=== PATIENT | male | born 1945 | race Native Hawaiian/Other Pacific Islander ===

== ENCOUNTER 2017-01-25 05:25 | Emergency (ER) | payer OTHER ==
[~2017-01-25] VITALS: Ht 180.3 cm; Wt 98.9 kg
[~2017-01-25 05:25] MED LIST: ALLO100T22 PO; CLONIDINE0.1 MG PO; INDOMETHACIN ER75 MG PO; LISITAB PO; TRAM50TA PO
[2017-01-25 05:42] VITALS: TEMP 98.8
[2017-01-25 06:35] LABS: PLATELET COUNT 174 K/uL (142-355)
[2017-01-25 06:39] LABS: POTASSIUM 3.6 mmol/L (3.6-5.2)
[2017-01-25 09:50] VITALS: BP 156/86
== END 2017-01-25 09:58 | disposition home or self-care (01) ==
LOC: ED 05:25
PROVIDERS: Emergency Medicine
DX: R10.31 Right lower quadrant pain (principal); N20.1 Calculus of ureter; N23 Unspecified renal colic
CPT/HCPCS: 36415; 80053; 81000; 83690; 85027; 96374; 96375; 99284; J2270; J2405

== ENCOUNTER 2018-06-25 07:33 | Outpatient (CLI) | payer OTHER ==
[~2018-06-25] VITALS: Ht 177.8 cm; Wt 97.1 kg
== END 2018-06-25 21:40 | disposition home or self-care (01) ==
LOC: NM 07:33
DX: R53.83 Other fatigue (principal); R94.31 Abnormal electrocardiogram [ECG] [EKG]
CPT/HCPCS: 93306; A9500; J2785

== ENCOUNTER 2018-07-20 09:30 | Outpatient (CLI) | payer OTHER ==
[2018-07-20 10:53] LABS: PLATELET COUNT 151 K/uL (142-355)
[2018-07-20 11:35] LABS: POTASSIUM 3.6 mmol/L (3.6-5.2)
== END 2018-07-20 22:18 | disposition home or self-care (01) ==
LOC: LABW 09:30
PROVIDERS: Specialist
DX: R07.2 Precordial pain (principal); Z01.810 Encounter for preprocedural cardiovascular examination
CPT/HCPCS: 36415; 80053; 85027

== ENCOUNTER 2018-11-10 07:42 | Outpatient (CLI) | payer OTHER ==
[2018-11-10 09:21] LABS: POTASSIUM 3.9 mmol/L (3.6-5.2)
== END 2018-11-10 19:28 | disposition home or self-care (01) ==
LOC: LABW 07:42
PROVIDERS: Nurse Practitioner Adult Health
DX: I25.10 Atherosclerotic heart disease of native coronary artery without angina pectoris (principal); E78.2 Mixed hyperlipidemia; Z79.899 Other long term (current) drug therapy
CPT/HCPCS: 36415; 80048; 80061; 80076; 84436; 84443; 84479

== ENCOUNTER 2018-12-10 07:21 | Outpatient (CLI) | payer OTHER ==
[2018-12-10 09:09] LABS: POTASSIUM 3.7 mmol/L (3.6-5.2)
== END 2018-12-10 23:42 | disposition home or self-care (01) ==
LOC: LABW 07:21
PROVIDERS: Nurse Practitioner Adult Health
DX: Z79.899 Other long term (current) drug therapy (principal)
CPT/HCPCS: 36415; 80048

== ENCOUNTER 2019-02-08 06:45 | Outpatient (CLI) | payer OTHER ==
[2019-02-08 08:38] LABS: POTASSIUM 4.5 mmol/L (3.6-5.2)
== END 2019-02-08 23:17 | disposition home or self-care (01) ==
LOC: LABW 06:45
PROVIDERS: Nurse Practitioner Adult Health
DX: E78.2 Mixed hyperlipidemia (principal); Z79.899 Other long term (current) drug therapy
CPT/HCPCS: 36415; 80048; 80061; 80076; 84436; 84443; 84479

== ENCOUNTER 2019-03-01 06:59 | Outpatient (CLI) | payer OTHER ==
[2019-03-01 07:27] LABS: PLATELET COUNT 134 K/uL (142-355)
[2019-03-01 07:42] LABS: POTASSIUM 3.9 mmol/L (3.6-5.2)
== END 2019-03-01 23:59 | disposition home or self-care (01) ==
LOC: LABW 06:59
PROVIDERS: Specialist
DX: Z79.899 Other long term (current) drug therapy (principal)
CPT/HCPCS: 36415; 80048; 85027

== ENCOUNTER 2019-03-11 11:30 | Emergency (ER) | payer OTHER ==
[~2019-03-11] VITALS: Ht 177.8 cm; Wt 98.9 kg
[2019-03-11 11:30] VITALS: TEMP 97.9
[2019-03-11 12:20] VITALS: BP 152/84
== END 2019-03-11 12:20 | disposition home or self-care (01) ==
LOC: ED 11:30
DX: B02.9 Zoster without complications (principal)
CPT/HCPCS: 99281

== ENCOUNTER → 2019-06-30 | Outpatient (CLI) | payer OTHER ==
[2019-06-30 08:59] LABS: POTASSIUM 4.1 mmol/L (3.6-5.2)
== END ==
LOC: LAB 07:39
PROVIDERS: Internal Medicine Interventional Cardiology
DX: I25.10 Atherosclerotic heart disease of native coronary artery without angina pectoris (principal); E78.2 Mixed hyperlipidemia; Z79.899 Other long term (current) drug therapy
CPT/HCPCS: 36415; 80048; 80061; 80076; 84436; 84443; 84479

== ENCOUNTER 2019-12-26 15:26 | Emergency (ER) | payer OTHER ==
[~2019-12-26] VITALS: Ht 177.8 cm; Wt 98.9 kg
[2019-12-26 15:34] VITALS: TEMP 99.2
[2019-12-26 16:19] LABS: PLATELET COUNT 187 K/uL (142-355)
[2019-12-26 16:21] LABS: POTASSIUM 4.1 mmol/L (3.6-5.2)
[2019-12-26 16:56] VITALS: BP 170/75
== END 2019-12-26 16:56 | disposition home or self-care (01) ==
LOC: ED 15:26
PROVIDERS: Hospitalist
DX: M10.9 Gout, unspecified (principal)
CPT/HCPCS: 80048; 84550; 85027; 85610; 85730; 93005; 99283; J1885; J2930

== ENCOUNTER 2019-12-28 07:30 | Outpatient (CLI) | payer OTHER ==
[2019-12-28 08:07] LABS: POTASSIUM 4.6 mmol/L (3.6-5.2)
== END 2019-12-28 21:24 | disposition home or self-care (01) ==
LOC: LABW 07:30
PROVIDERS: Nurse Practitioner
DX: I25.10 Atherosclerotic heart disease of native coronary artery without angina pectoris (principal); E78.2 Mixed hyperlipidemia
CPT/HCPCS: 36415; 80048; 80061; 80076

== ENCOUNTER 2020-02-01 07:27 | Outpatient (CLI) | payer OTHER ==
[2020-02-01 08:32] LABS: POTASSIUM 4.2 mmol/L (3.6-5.2)
== END 2020-02-01 21:19 | disposition home or self-care (01) ==
LOC: LABW 07:27
PROVIDERS: Nurse Practitioner Adult Health
DX: I25.10 Atherosclerotic heart disease of native coronary artery without angina pectoris (principal); E78.2 Mixed hyperlipidemia; Z79.899 Other long term (current) drug therapy; E87.6 Hypokalemia
CPT/HCPCS: 36415; 80048

== ENCOUNTER 2020-06-06 11:09 | Observation (INO) | payer OTHER ==
[~2020-06-06] VITALS: Ht 180.3 cm; Wt 101.6 kg
[2020-06-06 16:58] LABS: PLATELET COUNT 257 K/uL (142-355)
[2020-06-06 17:22] LABS: POTASSIUM 4.6 mmol/L (3.6-5.2)
[2020-06-06 17:54] VITALS: BP 188/91; TEMP 98.3; Ht 180.3 cm; Wt 101.6 kg
[2020-06-06 19:52] VITALS: BP 166/76; TEMP 97.9
[2020-06-06] MEDS ORDERED: ASA LOW DOSE81 MG PO (22:23)
[2020-06-06] MEDS ORDERED: ELIQUIS5 MG PO (22:26)
[2020-06-06] MEDS ORDERED: LIPITOR40 MG PO (22:28)
[2020-06-06] MEDS ORDERED: CARV6.25 PO (22:29)
[2020-06-06] MEDS ORDERED: COZAAR25 MG PO (22:30)
[2020-06-06] MEDS ORDERED: AMIODARONE HYD200 MG PO (22:34)
[2020-06-06 23:40] VITALS: BP 175/69; TEMP 98.6
[2020-06-07 04:00] VITALS: BP 160/71; TEMP 98.4
[2020-06-07 08:00] VITALS: BP 159/63; TEMP 98.1
[2020-06-07 08:35] LABS: PLATELET COUNT 218 K/uL (142-355)
[2020-06-07 08:50] LABS: POTASSIUM 4.1 mmol/L (3.6-5.2)
[2020-06-07 11:55] VITALS: BP 142/58; TEMP 97.2
[2020-06-07 16:00] VITALS: BP 140/66; TEMP 97.6
[2020-06-07 20:00] VITALS: BP 126/76; TEMP 98.2
[2020-06-08] VITALS: BP 189/85; TEMP 98.2
[2020-06-08 01:00] VITALS: BP 173/77
[2020-06-08 04:00] VITALS: BP 171/69; TEMP 97.5
[2020-06-08 08:00] VITALS: BP 177/74; TEMP 98.4
== END 2020-06-08 09:00 | disposition home or self-care (01) ==
LOC: RAD 11:09 → MED/SURG 14:48
PROVIDERS: ADMIT Family Medicine; ATTEND Family Medicine
DX: J18.8 Other pneumonia, unspecified organism (principal); I25.10 Atherosclerotic heart disease of native coronary artery without angina pectoris; E66.01 Morbid (severe) obesity due to excess calories; I10 Essential (primary) hypertension; J20.9 Acute bronchitis, unspecified; Z03.89 Encounter for observation for other suspected diseases and conditions ruled out; R06.2 Wheezing; R53.83 Other fatigue; I48.0 Paroxysmal atrial fibrillation
CPT/HCPCS: 80053; 82550; 82728; 83735; 83880; 84100; 84484; 85027; 85379; 86140; 87070; 87205; 87635; 93005; 94664; 94667; 94668; 94760; 96365; 96367; 96375; 99220; G0378; J0456; J0696; J1956; J2920; U0003

== ENCOUNTER 2020-08-03 11:41 | Observation (INO) | payer OTHER ==
[~2020-08-03] VITALS: Ht 180.3 cm; Wt 101.8 kg
[~2020-08-03 11:41] MED LIST changes: +AMIODARONE HYD200 MG PO; +ASA LOW DOSE81 MG PO; +CARV6.25 PO; +COZAAR25 MG PO; +ELIQUIS5 MG PO; +LIPITOR40 MG PO
[2020-08-03 12:41] LABS: PLATELET COUNT 122 K/uL (142-355)
[2020-08-03 12:59] LABS: SODIUM 141 mmol/L (136-145)
[2020-08-03 13:04] LABS: PARTIAL THROMBOPLASTIN TIME 27.1 SECONDS (24.5-33.6)
[2020-08-03 18:13] VITALS: BP 186/98; TEMP 97.8; Ht 180.3 cm; Wt 101.8 kg
[2020-08-03 20:00] VITALS: BP 138/65; TEMP 97.7
[2020-08-03 21:34] LABS: POTASSIUM 4.1 mmol/L (3.6-5.2); SODIUM 143 mmol/L (136-145)
[2020-08-04 00:02] VITALS: BP 148/67; TEMP 98.5
[2020-08-04 03:58] VITALS: BP 142/73; TEMP 97.6
[2020-08-04 05:37] LABS: POTASSIUM 4.1 mmol/L (3.6-5.2)
[2020-08-04 08:00] VITALS: BP 151/75; TEMP 98.1
[2020-08-04 08:07] LABS: PLATELET COUNT 113 K/uL (142-355)
--- NOTE | 2020-08-04 12:52 | NUR ---
08/04/20 1245 PT DISCHARGED TO HOME VIA [employer]IVATE [employer]LE WITH FAMILY.PT AND DAUGHTER INSTRUCTED ON INFORMATION HAS BEEN SENT TO [facility] WILL CONTACT THEM FOR A APPT TIME.SALINE LOCK REMOVED APPLIED 2X2 SECURED WITH TAPE.CC
== END 2020-08-04 12:45 | disposition home or self-care (01) ==
LOC: MED/SURG 11:41
PROVIDERS: ADMIT Family Medicine; ATTEND Family Medicine
DX: R07.89 Other chest pain (principal)
CPT/HCPCS: 36415; 80053; 82550; 84484; 85027; 85610; 85730; 87635; 93005; 96372; 96374; 99220; G0378; G0379; J1650; U0003

== ENCOUNTER 2020-10-05 09:09 | Outpatient (CLI) | payer OTHER ==
[2020-10-05 09:25] LABS: PLATELET COUNT 170 K/uL (142-355)
[2020-10-05 09:31] LABS: POTASSIUM 4.1 mmol/L (3.6-5.2); SODIUM 143 mmol/L (136-145)
== END 2020-10-05 21:27 | disposition home or self-care (01) ==
LOC: LABW 09:09
PROVIDERS: ATTEND Nurse Practitioner Family
DX: R06.09 Other forms of dyspnea (principal)
CPT/HCPCS: 36415; 80053; 82550; 82553; 83880; 84484; 85027

== ENCOUNTER 2021-01-17 09:45 | Outpatient (CLI) | payer OTHER | END 2021-01-17 21:29 | disposition home or self-care (01) | LOC: CT 09:45 | PROVIDERS: ATTEND Nurse Practitioner Primary Care | DX: S09.8XXA Other specified injuries of head, initial encounter (principal); W19.XXXA Unspecified fall, initial encounter ==

== ENCOUNTER 2021-02-02 09:48 | Observation (INO) | payer OTHER ==
[~2021-02-02] VITALS: Ht 180.3 cm; Wt 112.6 kg
[2021-02-02 11:07] LABS: PLATELET COUNT 161 K/uL (142-355)
--- NOTE | 2021-02-02 11:09 | NUR ---
RT TO ASSESS PT. EKG AND ABG COMPLETED AT THIS TIME. BBS ARE CLEAR IN UPPER LOBES AND DIMINISHED IN LOWER LOBES. NO WHEEZING HEARD AT THIS TIME. PT IS ON ROOM AIR. SPO2 AT 95%, HR 80. PT GETS SLIGHTLY SOB WHEN TALKING, BUT RECOVERS QUICKLY. WHEN PT IS TALKING SPO2 AT 91-92%. NEB TX SUPPLIES AT BEDSIDE FOR PRN USE.
[2021-02-02 12:48] VITALS: BP 157/90; TEMP 97.3; Ht 180.3 cm; Wt 112.6 kg
--- NOTE | 2021-02-02 13:48 | NUR ---
LATE ENTRY 02/02/21 1010- Patient here direct admit from office. Patient taken to room 1114 and VS taken. Swabbed for Covid-19. Admission assessment completed. Iv 22 g x1 attempt started to the left hand saline locked at this time. Patient oriented to room and call lights. Bed locked in low position.
[2021-02-02] MEDS ORDERED: COZAAR100 MG PO (15:45)
[2021-02-02] MEDS ORDERED: PACERONE200 MG PO (15:49)
[2021-02-02] MEDS ORDERED: BENZONATATE100 MG PO (15:49)
[2021-02-02 15:51] VITALS: BP 149/87; TEMP 98.1
[2021-02-02] MEDS ORDERED: FURO20TA67 PO (15:52)
[2021-02-02] MEDS ORDERED: PROAIR HFA108 MCG/AC INH (15:52)
[2021-02-02] MEDS ORDERED: BREZTRI AEROSPH1 AER INH (17:23)
--- NOTE | 2021-02-02 18:29 | NUR ---
CPT VEST PLACED AT PT BEDSIDE FOR FUTURE USE. PT ALSO GIVEN SPUTUM SPECIMENT CUP AND ENCOURGED TO COUGH MUCUS INTO CUP TO SEND TO LAB.
[2021-02-02 20:00] VITALS: BP 119/62; TEMP 97.5
[2021-02-03] VITALS: BP 125/68; TEMP 98.1
--- NOTE | 2021-02-03 03:48 | NUR ---
PT SITTING UP IN HIGH BACK CHAIR. PT STATES THAT HE IS "FEELING BETTER."
[2021-02-03 04:00] VITALS: BP 136/72; TEMP 97.6
[2021-02-03 05:38] LABS: PLATELET COUNT 157 K/uL (142-355)
[2021-02-03 05:45] LABS: POTASSIUM 4.7 mmol/L (3.6-5.2)
[2021-02-03 08:00] VITALS: BP 123/68; TEMP 97.9
--- NOTE | 2021-02-03 08:00 | NUR ---
EDUCATED PT ON ELEVATING HIS LEGS TO HELP WITH SWELLING. PT VERBALIZES UNDERSTANDING. SHOWED PT HOW TO ELEVATE LEGS IN RECLINER
--- NOTE | 2021-02-03 11:04 | NUR ---
IN PT'S ROOM. PT STATES, "MA'AM, I CANT SIT WITH MY LEGS UP. I CANT BREATHE." PT PUT HIS LEGS DOWN AND LEANED FORWARD IN CHAIR. NAD NOTED
[2021-02-03 12:00] VITALS: BP 140/77; TEMP 97.6
[2021-02-03 16:00] VITALS: BP 168/82; TEMP 97.8
[2021-02-03 20:00] VITALS: BP 126/87; TEMP 97.6
[2021-02-04] VITALS: BP 126/68; TEMP 98.3
--- NOTE | 2021-02-04 01:59 | NUR ---
PATIENT IS RESTING QUIETLY IN THE CHAIR. HIS FEET WERE ELIVATED AND IV IS SALINE LOCKED.
[2021-02-04 04:29] VITALS: BP 124/60; TEMP 97.6
[2021-02-04 04:58] LABS: PLATELET COUNT 144 K/uL (142-355)
[2021-02-04 05:35] LABS: POTASSIUM 4.6 mmol/L (3.6-5.2)
--- NOTE | 2021-02-04 07:46 | NUR ---
LATE ENTRY: 02/03/211929 PATIENT OF ON ROOM AIR WAS 89. DR ROJAS WAS CALLED AND PATIENT WAS PLACED ON O2 AND CHEST Z-RAY ORDERED
[2021-02-04 08:00] VITALS: BP 139/67; TEMP 97.5
[2021-02-04 12:00] VITALS: BP 125/74; TEMP 97.6
--- NOTE | 2021-02-04 17:31 | NUR ---
1445 DR ROJAS EDUCATED PT AND PT SON ON IMPORTANCE OF ELEVATING FEET AT ALL TIMES. PT AND PT SON EDUCATED ON IMPORTANCE OF FAMILY STAYING WITH PT AT ALL TIMES DUE TO INCREASED SAFTEY HAZARDS WHEN PT IS LEFT ALONE. [id number] ML FLUID RESTRICTION EXPLAINED TO PT AND PT FAMILY. BOTH VERBALIZED UNDERSTANDING OF EDUCATION AND D/C INSTRUCTIONS 1510 IV CATH REMOVED WITH TIP INTACT. PRESSURE APPLIED FOR 5 MINUTES UNTIL BLEEDING STOPPED
--- NOTE | 2021-02-04 17:39 | NUR ---
PT EXITED FACILITY VIA WC ACCOMPANIED BY STAFF WITH PERSONAL BELONGINGS
== END 2021-02-04 17:10 | disposition home or self-care (01) ==
LOC: MED/SURG 09:48
PROVIDERS: ADMIT Family Medicine; ATTEND Family Medicine
DX: I11.0 Hypertensive heart disease with heart failure (principal); I50.9 Heart failure, unspecified; R18.8 Other ascites; J44.1 Chronic obstructive pulmonary disease with (acute) exacerbation; I89.0 Lymphedema, not elsewhere classified; Z86.73 Personal history of transient ischemic attack (TIA), and cerebral infarction without residual deficits
CPT/HCPCS: 36415; 36600; 80053; 82550; 82805; 83735; 83880; 84100; 84484; 85027; 85379; 87040; 87635; 93005; 94640; 94664; 94667; 94668; 94760; 96365; 96367; 96375; 99220; G0378; G0379; J0456; J0696; J2405; U0003

== ENCOUNTER 2021-06-28 14:52 | Emergency (ER) | payer OTHER ==
[~2021-06-28] VITALS: Ht 180.3 cm; Wt 112.5 kg
[~2021-06-28 14:52] MED LIST changes: +BENZONATATE100 MG PO; +BREZTRI AEROSPH1 AER INH; +COZAAR100 MG PO; +FURO20TA67 PO; +PACERONE200 MG PO; +PROAIR HFA108 MCG/AC INH
[2021-06-28 16:08] LABS: PLATELET COUNT 118 K/uL (142-355)
[2021-06-28 17:30] VITALS: TEMP 98
[2021-06-28 17:40] VITALS: BP 130/72
== END 2021-06-28 17:45 | disposition home or self-care (01) ==
LOC: ED 14:52
PROVIDERS: Emergency Medicine Emergency Medical Services
DX: B34.9 Viral infection, unspecified (principal); Z20.822 Contact with and (suspected) exposure to COVID-19
CPT/HCPCS: 36415; 80053; 81000; 84484; 85027; 87502; 87635; 93005; 96360; 99284; U0003

== ENCOUNTER 2021-07-17 21:22 | Inpatient (IN) | payer OTHER ==
[~2021-07-17] VITALS: Ht 180.3 cm; Wt 90.5 kg
[2021-07-17 21:30] VITALS: BP 137/59; TEMP 98.7
[2021-07-17 22:00] VITALS: BP 122/68
[2021-07-17 22:30] VITALS: BP 109/50
[2021-07-17 22:56] LABS: PLATELET COUNT 112 K/uL (142-355)
[2021-07-17 23:00] VITALS: BP 114/32
[2021-07-17 23:01] LABS: POTASSIUM 4.9 mmol/L (3.6-5.2)
[2021-07-17 23:17] LABS: PARTIAL THROMBOPLASTIN TIME 33.6 SECONDS (24.5-33.6)
[2021-07-18] VITALS (7 sets, daily range): BP systolic 105–153; BP diastolic 48–97; TEMP 97.4–98.4; Ht 180.3 cm; Wt 90.5 kg
--- NOTE | 2021-07-18 08:27 | NUR ---
IN TO GIVE MORNING MEDS. PT RECEIVED MEDS WITHOUT DIFFICULTY. REPORTS PAIN IN LEFT LEG AT AN 8 ON 0-10 PAIN SCALE. PRN PAIN MEDS GIVEN, SEE MAR. NO OTHER COMPLAINTS OR REQUESTS AT THIS TIME. BED LOW AND LOCKED. SIDE RAILS UP X2. CALL LIGHT WITHIN REACH.
--- NOTE | 2021-07-18 12:13 | NUR ---
PT COMPLAINING OF PAIN IN RIGHT LEG. PRN PAIN MEDS GIVEN, SEE MAR.
--- NOTE | 2021-07-18 15:35 | NUR ---
VERBAL ORDER FROM MD TO HOLD 1600 LOPRESSOR DOSE DUE TO BP 128/50 HR 52.
--- NOTE | 2021-07-18 16:20 | NUR ---
PT RESTING IN BED WITH EYES CLOSED. RESPIRATIONS EVEN AND UNLABORED. NAD NOTED. BED LOW AND LOCKED. CALL LIGHT WITHIN REACH.
--- NOTE | 2021-07-18 18:42 | NUR ---
WET TO DRY DRESSING APPLIED TO LLE. COVERED WITH NON ADHERANT PAD AND WRAPPED WITH KOBAN.
[2021-07-19] VITALS: BP 144/67; TEMP 97.7
[2021-07-19 04:00] VITALS: BP 124/53; TEMP 98.7
[2021-07-19 05:03] LABS: PLATELET COUNT 88 K/uL (142-355); POTASSIUM 4.5 mmol/L (3.6-5.2)
[2021-07-19 08:00] VITALS: BP 126/36; TEMP 98.2
[2021-07-19 13:50] VITALS: BP 122/51; TEMP 98.6
[2021-07-19 16:00] VITALS: BP 144/68; TEMP 98.4
--- NOTE | 2021-07-19 16:11 | NUR ---
0800 PT UP ON BEDSIDE AT AM ROUNDS, DENIED NEEDS OR C/O. SEE AM ASSESSMENT. CLEAR, YELLOW URINE IN URINAL HANGING AT BEDSIDE. DRESSING TO RLE CLEAN, DRY, INTACT. PT ALERT & ORIENTED AND ABLE TO MAKE NEEDS KNOWN, CALL LIGHT IN REACH. 1004 PT WATCHING TV WHILE LYING IN BED, REQUESTING SNACK AND PROVIDED DIET STELLA LASHELL AND CHEEZ-ITS, DENIED FURTHER NEEDS. 1358 PT C/O PAIN TO RLE #7 ON SCALE, STATED IT "RUNS UP AND DOWN MY LEG, ACHING". HYDROCODONE 5/325MG PO GIVEN. CALL LIGHT IN REACH. 1430 PT RESTING IN BED QUIETLY WITH EYES CLOSED, EASY RESPIRATIONS NOTED, CALL LIGHT IN REACH.
[2021-07-19 20:00] VITALS: BP 128/44; TEMP 97.8
[2021-07-20] VITALS: BP 131/60; TEMP 97.5
[2021-07-20 04:00] VITALS: BP 133/55; TEMP 98.5
[2021-07-20 05:18] LABS: PLATELET COUNT 101 K/uL (142-355)
--- NOTE | 2021-07-20 11:45 | NUR ---
Resource Room Teacher called to patients room via nursing. Patients daughter said that they were told they could get assistance with meals, housekeeping, and nursing. Resource Room Teacher explained home health to the patient. Resource Room Teacher also informed patient and his daughter was unaware of anyone service that did housekeeping, but would ask source when they returned writers call. Mindy patients daughter asked keno writer to call patient when she knew something. Resource Room Teacher spoke with MD about home health and it was approved. Resource Room Teacher sent out information. Resource Room Teacher called patients daughter and left message.
[2021-07-20 12:00] VITALS: BP 134/59; TEMP 98.6
--- NOTE | 2021-07-20 12:00 | NUR ---
WOUNDS ON BILATERAL LEGS LEFT LEG CLUSTER OF BLISTERS MEASURING 4.3 CM X 1.7 CM OPEN AREA MEASURES 0.9 CM X 1 CM WITH .1 DEPTH RIGHT MEASURES 5.8 CM X 5.6 CM ANTIOR POSTERIOR IS 7 X 3.4 CM .2 DEPTH 2 X 2.6 CM WITH .2 DEPT
[2021-07-20] MEDS ORDERED: PANTOPRAZOLE SO20 MG PO (12:40)
[2021-07-20] MEDS ORDERED: CARV3.12 PO (12:40)
== END 2021-07-20 16:18 | disposition home health service (06) | DRG 603 ==
LOC: ED 21:22 → MED/SURG 22:45
PROVIDERS: ADMIT Hospitalist; ATTEND Internal Medicine Endocrinology, Diabetes & Metabolism
DX: L03.116 Cellulitis of left lower limb (principal); I13.0 Hypertensive heart and chronic kidney disease with heart failure and stage 1 through stage 4 chronic kidney disease, or unspecified chronic kidney disease; L97.828 Non-pressure chronic ulcer of other part of left lower leg with other specified severity; L97.818 Non-pressure chronic ulcer of other part of right lower leg with other specified severity; L03.115 Cellulitis of right lower limb; E78.49 Other hyperlipidemia; K21.9 Gastro-esophageal reflux disease without esophagitis; N18.32 Chronic kidney disease, stage 3b; I50.9 Heart failure, unspecified
CPT/HCPCS: 36415; 36416; 80048; 80053; 80074; 80202; 82570; 82652; 83516; 83605; 83970; 84100; 84155; 84165; 84166; 85027; 85610; 85730; 86038; 86060; 86160; 86255; 86592; 87040; 87535; 87635; 94760; 96365; 96375; 99284; G0432; J1650; J1885; J1940; J2270; J2405; J2543; J3370; U0003

== ENCOUNTER 2021-08-06 08:57 | Emergency (ER) | payer OTHER ==
[~2021-08-06] VITALS: Ht 180.3 cm; Wt 90.7 kg
[~2021-08-06 08:57] MED LIST changes: +CARV3.12 PO; +PANTOPRAZOLE SO20 MG PO
[2021-08-06 10:10] LABS: PLATELET COUNT 143 K/uL (142-355)
[2021-08-06 11:36] VITALS: BP 150/67; TEMP 97.1
== END 2021-08-06 11:38 | disposition home or self-care (01) ==
LOC: ED 08:57
PROVIDERS: Hospitalist
DX: L03.116 Cellulitis of left lower limb (principal); L03.115 Cellulitis of right lower limb; G89.29 Other chronic pain; I73.89 Other specified peripheral vascular diseases; M79.605 Pain in left leg; M79.604 Pain in right leg
CPT/HCPCS: 36415; 80053; 85027; 96365; 96375; 99284; J1885; J2405; J3370

== ENCOUNTER 2022-02-11 20:04 | Emergency (ER) | payer OTHER ==
[~2022-02-11] VITALS: Ht 180.3 cm; Wt 83.0 kg
[2022-02-11 23:06] LABS: POTASSIUM 4.1 mmol/L (3.6-5.2)
[2022-02-11 23:13] LABS: PLATELET COUNT 170 K/uL (142-355)
[2022-02-12 07:00] VITALS: TEMP 98.8
[2022-02-12 08:14] VITALS: BP 103/52
== END 2022-02-12 08:15 | disposition short-term general hospital (02) ==
LOC: ED 20:04
PROVIDERS: Emergency Medicine Emergency Medical Services
DX: J18.9 Pneumonia, unspecified organism (principal); J91.8 Pleural effusion in other conditions classified elsewhere; L03.115 Cellulitis of right lower limb; I50.9 Heart failure, unspecified; W18.39XA Other fall on same level, initial encounter; Y92.89 Other specified places as the place of occurrence of the external cause; Z11.52 Encounter for screening for COVID-19
CPT/HCPCS: 36415; 80053; 83605; 83735; 83880; 84484; 85027; 85610; 87040; 87635; 93005; 94664; 96360; 96361; 96365; 96366; 99284; J1956; U0003

== ENCOUNTER 2023-01-01 09:28 | Emergency (ER) | payer OTHER ==
[~2023-01-01] VITALS: Ht 180.3 cm; Wt 90.7 kg
[2023-01-01 09:28] VITALS: BP 76/37; TEMP 97
[2023-01-01 10:15] LABS: POTASSIUM 3.6 mmol/L (3.6-5.2)
[2023-01-01 10:17] LABS: PLATELET COUNT 152 K/uL (142-355)
== END 2023-01-01 11:50 | disposition short-term general hospital (02) ==
LOC: ED 09:28
PROVIDERS: Family Medicine
DX: I46.9 Cardiac arrest, cause unspecified (principal); N17.9 Acute kidney failure, unspecified
CPT/HCPCS: 36600; 43754; 51702; 80053; 82805; 83605; 83735; 84100; 84484; 85027; 85730; 87040; 93005; 94002; 94003; 94760; 96361; 96365; 96366; 96375; 99285; J0282; J0696; J2250; J3490